=== PATIENT | male | born 1960 | race Caucasian/White ===

== ENCOUNTER → 2018-04-04 | Emergency (ER) | payer MEDICAID ==
[~2018-04-04] VITALS: Ht 172.7 cm; Wt 77.0 kg
[~2018-04-04] MED LIST: DOXY100C43 PO
[2018-04-04 14:02] VITALS: BP 146/80
== END | disposition home or self-care (01) ==
LOC: ER 13:59
DX: S60.453A Superficial foreign body of left middle finger, initial encounter (principal); I10 Essential (primary) hypertension; Z88.0 Allergy status to penicillin; Z88.8 Allergy status to other drugs, medicaments and biological substances; Z79.899 Other long term (current) drug therapy; X58.XXXA Exposure to other specified factors, initial encounter; Y93.89 Activity, other specified; Y92.89 Other specified places as the place of occurrence of the external cause; Y99.8 Other external cause status
CPT/HCPCS: 99284; A6266

== ENCOUNTER 2019-03-13 19:00 | Emergency (ER) | payer MEDICAID ==
[~2019-03-13] VITALS: Ht 172.7 cm; Wt 76.9 kg
[2019-03-13 19:43] LABS: BASOPHILS % (AUTO) 0.5 % (0-1); EOSINOPHILS # (AUTO) 0.1 X10'3 (0-0.9); EOSINOPHILS % (AUTO) 1.6 % (0-6); HEMATOCRIT 41.4 % (42.0-52.0); HEMOGLOBIN 14.2 g/dl (14.0-17.9); LYMPHOCYTES # (AUTO) 2.9 X10'3 (1.1-4.8); LYMPHOCYTES % (AUTO) 36.5 % (21-51); MEAN CORPUSCULAR HEMOGLOBIN 31.1 PG (27.0-31.0); MEAN CORPUSCULAR HGB CONC 34.4 g/dL (33.0-36.5); MEAN CORPUSCULAR VOLUME 90.5 FL (78-98); MEAN PLATELET VOLUME 9.2 FL (7.4-10.4); MONOCYTES # (AUTO) 0.6 X10'3 (0-0.9); MONOCYTES % (AUTO) 7.5 % (2-12); NEUTROPHILS # (AUTO) 4.3 X10'3 (1.8-7.7); NEUTROPHILS % (AUTO) 53.9 % (42-75); PLATELET COUNT 201 X10'3 (140-440); RED BLOOD COUNT 4.58 X10'6 (4.70-6.10); WHITE BLOOD COUNT 7.9 X10'3 (4.5-11.0)
[2019-03-13 19:51] LABS: ALANINE AMINOTRANSFERASE 36 U/L (12-78); ALBUMIN 3.8 G/DL (3.4-5.0); ALBUMIN/GLOBULIN RATIO 1.1 (1.1-1.5); ALKALINE PHOSPHATASE 72 IU/L (46-116); ANION GAP 8 (8-16); ASPARTATE AMINO TRANSFERASE 25 U/L (10-37); BILIRUBIN,TOTAL 0.2 MG/DL (0.1-1.0); BLOOD UREA NITROGEN 14 MG/DL (7-18); BUN/CREATININE RATIO 16.1 (5.4-32.0); CALCIUM 8.6 MG/DL (8.5-10.1); CHLORIDE 93 MMOL/L (99-107); CREATININE 0.87 MG/DL (0.60-1.10); GLUCOSE 96 MG/DL (70-104); POTASSIUM 4.3 MMOL/L (3.5-5.1); SODIUM 129 MMOL/L (135-145); TOTAL CARBON DIOXIDE 27.9 MMOL/L (24-32); TOTAL PROTEIN 7.2 G/DL (6.4-8.2); eGFR 90 ML/MIN
[2019-03-13 19:52] LABS: PARTIAL THROMBOPLASTIN TIME 29 SECONDS (22-32)
--- NOTE | 2019-03-13 19:55 | NUR ---
PT HAS FAMILY AT BEDSIDE. PT CONTINUES IN AFLUTTER RATE 81. MEGGAN RAGSDALE MD. PIV IN PLACE, LABS DRAWN.
[2019-03-13] MEDS ORDERED: AMLO5TAB16 (20:26)
[2019-03-13] MEDS ORDERED: CARB200T40 (20:26)
[2019-03-13] MEDS ORDERED: DIVA-51 (20:26)
[2019-03-13] MEDS ORDERED: FEXO-62 (20:26)
[2019-03-13] MEDS ORDERED: ATOR20TA66 (20:26)
[2019-03-13] MEDS ORDERED: LISI40TA4 (20:26)
[2019-03-13] MEDS ORDERED: ASPI-1264 PO (22:44)
[2019-03-13 23:10] VITALS: BP 162/83
== END 2019-03-13 23:13 | disposition home or self-care (01) ==
LOC: ER 19:01
DX: I48.92 Unspecified atrial flutter (principal); R42 Dizziness and giddiness; I10 Essential (primary) hypertension; F17.200 Nicotine dependence, unspecified, uncomplicated; Z88.0 Allergy status to penicillin; Z79.82 Long term (current) use of aspirin; Z79.899 Other long term (current) drug therapy
CPT/HCPCS: 36415; 71045; 80053; 82948; 84484; 85025; 85610; 85730; 93005; 99284